=== PATIENT | female | born 1985 | race Caucasian/White ===

== ENCOUNTER 2016-10-08 | Inpatient (IN) | payer BC ==
[~2016-10-08] MED LIST: IRON1 TA1 PO; IRON325 M1 PO; MOTRIN800 MG PO; NORCO 5/325 TAB1 TAB PO; OXYCODONE/APAP PO; PRENATAL1 EACH PO; TYLENOL325 M1 PO; ZANTAC 7575 MG PO
[2016-10-08] MEDS ORDERED: FISH OIL 11000 MG/CA PO (14:44)
[2016-10-10] MEDS ORDERED: IBUPROFEN800 M1 PO (09:53)
[2016-10-10] MEDS ORDERED: NORCO 5-325 TA1 EACH PO (09:55)
== END 2016-10-10 11:30 | DRG 775 ==
DX: O41.03X0 Oligohydramnios, third trimester, not applicable or unspecified (principal); O99.824 Streptococcus B carrier state complicating childbirth; O70.0 First degree perineal laceration during delivery; O71.82 Other specified trauma to perineum and vulva; O76 Abnormality in fetal heart rate and rhythm complicating labor and delivery; Z3A.40 40 weeks gestation of pregnancy; Z37.0 Single live birth